=== PATIENT | male | born 1960 | race Caucasian/White ===

== ENCOUNTER 2020-09-15 19:44 | Emergency (ER) | payer OTHER ==
[2020-09-15 20:00] VITALS: BMI 32.6
[2020-09-15 22:34] LABS: BASO % 0.9 % (0-2.0); EOS % 2.7 % (0-4.5); HEMATOCRIT 45.2 % (35.4-49); HEMOGLOBIN 15.1 GM/dL (11.7-16.9); LYMPH % 14.2 % (8-40); MCH 29.1 pg (25.7-33.7); MCHC 33.4 g/dl (32.0-35.9); MEAN CELL VOLUME 87.2 fl (80-96); MONO % 4.8 % (3.8-10.2); NEUT % 77.4 % (42.8-82.8); PLATELET COUNT 317 K/MM3 (134-434); RBC 5.19 M/mm3 (4.00-5.60); RDW 15.5 % (11.9-15.9); WHITE BLOOD COUNT 8.6 K/mm3 (4.0-10.0)
[2020-09-15] MEDS ORDERED: diazePAM CARPU-JECT 10 MG/2 ML DISP.SYRIN IVPUSH ONE (22:36)
[2020-09-15] MEDS ORDERED: SODIUM CHLORIDE 0.9% 500 ML INFUS.BAG IV ONE (22:37)
[2020-09-15] MEDS ORDERED: MIDAZOLAM HCL 2 MG/2 ML SINGLE DOSE VIAL IVPUSH ONE (22:37)
[2020-09-15] MEDS ORDERED: MIDAZOLAM HCL 2 MG/2 ML SINGLE DOSE VIAL ONE (22:40)
[2020-09-15] MEDS ORDERED: LORazepam 2 MG/ML SDV VIAL ONE (22:43)
[2020-09-15] MEDS ORDERED: diazePAM 5 MG TABLET PO ONE (22:43)
[2020-09-15] MEDS ORDERED: diazePAM 5 MG TABLET ONE (22:44)
[2020-09-15 22:45] LABS: INR 1.05 (0.83-1.09); PROTHROMBIN TIME (PATIENT) 12.7 SEC (9.7-13.0)
[2020-09-15 22:48] LABS: ACTIVATED PTT 30.5 SECONDS (25.2-36.5)
[2020-09-15 22:54] LABS: CHLORIDE 104 mmol/L (98-107); POTASSIUM 3.9 mmol/L (3.5-5.1); SODIUM 139 mmol/L (136-145)
[2020-09-15 22:57] LABS: ALBUMIN 4.3 g/dl (3.4-5.0); ANION GAP 9 MMOL/L (8-16); BLOOD UREA NITROGEN 9.6 mg/dL (7-18); CO2 26 mmol/L (21-32); GLUCOSE,RANDOM 106 mg/dL (74-106)
[2020-09-15 22:59] LABS: SGPT/ALT 30 U/L (13-61)
[2020-09-15 23:00] LABS: CREATININE 1.1 mg/dL (0.55-1.3); SGOT/AST 18 U/L (15-37)
[2020-09-15 23:01] LABS: TOT PROT 7.8 g/dl (6.4-8.2)
[2020-09-15 23:03] LABS: ALK PHOS 116 U/L (45-117)
[2020-09-15 23:22] LABS: ERYTHROCYTE SEDIMENTATION RATE 7 mm/hr (0-20)
[2020-09-16] MEDS ORDERED: DEXAMETHASONE SOD PHOSPHATE 10 MG/1 ML VIAL IVPUSH ONE (01:06)
[2020-09-16] MEDS ORDERED: DEXAMETHASONE SOD PHOSPHATE 10 MG/1 ML VIAL ONE (01:07)
[2020-09-16 01:39] VITALS: BP 166/92; PULSE 98
[2020-09-16 01:40] VITALS: TEMP 98.1
== END 2020-09-16 02:17 | disposition short-term general hospital (02) ==
LOC: JER 19:44
PROC: 3E033NZ Introduction of Analgesics, Hypnotics, Sedatives into Peripheral Vein, Percutaneous Approach (ICD-10-PCS; principal; 2020-09-15)
PROC: 3E033GC Introduction of Other Therapeutic Substance into Peripheral Vein, Percutaneous Approach (ICD-10-PCS; 2020-09-15)
DX: G95.20 Unspecified cord compression (principal)
CPT/HCPCS: 36415; 72148-TC; 80053; 85025; 85610; 85651; 85730; 86140; 99285-25; C9803; J1100; U0003

== ENCOUNTER 2021-03-23 15:13 | Emergency (ER) | payer OTHER ==
[2021-03-23 15:20] VITALS: BMI 19.0
[2021-03-23 17:25] VITALS: TEMP 98.1
[2021-03-23] MEDS ORDERED: CEFAZOLIN 1 GM/D5W 1 GM/50 ML BAG IVPB ONE (17:30)
[2021-03-23 17:34] LABS: BASO % 0.3 % (0-2.0); EOS % 5.4 % (0-4.5); HEMATOCRIT 40.3 % (35.4-49); HEMOGLOBIN 13.5 GM/dL (11.7-16.9); LYMPH % 16.4 % (8-40); MCH 27.9 pg (25.7-33.7); MCHC 33.6 g/dl (32.0-35.9); MEAN CELL VOLUME 83.2 fl (80-96); MEAN PLT VOLUME 8.3 fl (7.5-11.1); MONO % 5.6 % (3.8-10.2); NEUT % 72.3 % (42.8-82.8); PLATELET COUNT 290 K/MM3 (134-434); RBC 4.85 M/mm3 (4.00-5.60); RDW 16.2 % (11.9-15.9); WHITE BLOOD COUNT 6.5 K/mm3 (4.0-10.0)
[2021-03-23 17:42] LABS: INR 0.99 (0.83-1.09); PROTHROMBIN TIME (PATIENT) 12.2 SEC (9.7-13.0)
[2021-03-23 17:45] LABS: ACTIVATED PTT 30.3 SECONDS (25.2-36.5)
[2021-03-23] MEDS ORDERED: ACETAMINOPHEN 1000 MG/100 ML VIAL (NON FORMULARY) IVPB ONE (17:46)
[2021-03-23 17:54] LABS: CHLORIDE 107 mmol/L (98-107); SODIUM 141 mmol/L (136-145)
[2021-03-23 17:56] LABS: ANION GAP 7 MMOL/L (8-16); CALCIUM 8.5 mg/dL (8.5-10.1); CO2 27 mmol/L (21-32); GLUCOSE,RANDOM 121 mg/dL (74-106)
[2021-03-23 17:57] LABS: ALBUMIN 3.8 g/dl (3.4-5.0); BLOOD UREA NITROGEN 8.5 mg/dL (7-18)
[2021-03-23 17:59] LABS: CREATININE 1.2 mg/dL (0.55-1.3); SGOT/AST 23 U/L (15-37); SGPT/ALT 29 U/L (13-61)
[2021-03-23 18:01] LABS: BILIRUBIN,TOTAL 0.7 mg/dL (0.2-1)
[2021-03-23 18:02] LABS: ALK PHOS 125 U/L (45-117)
[2021-03-23] MEDS ORDERED: CEFAZOLIN 1 GM/D5W 1 GM/50 ML BAG ONE (19:32)
[2021-03-23] MEDS ORDERED: ACETAMINOPHEN INJECTION 100 ML IVPB ONE (19:32)
[2021-03-23 19:42] VITALS: BP 187/117; PULSE 96
== END 2021-03-23 20:58 | disposition home or self-care (01) ==
LOC: JER 15:13
PROC: 3E03329 Introduction of Other Anti-infective into Peripheral Vein, Percutaneous Approach (ICD-10-PCS; principal; 2021-03-23)
PROC: 3E033NZ Introduction of Analgesics, Hypnotics, Sedatives into Peripheral Vein, Percutaneous Approach (ICD-10-PCS; 2021-03-23)
DX: L03.211 Cellulitis of face (principal); L02.01 Cutaneous abscess of face; Z86.79 Personal history of other diseases of the circulatory system
CPT/HCPCS: 36415; 70481-TC; 71045-TC-FY; 80053; 84484; 85025; 85610; 85730; 87040; 93005; 93010; 99285-25; J0131; Q9967

== ENCOUNTER 2024-01-20 04:37 | Day surgery (SDC) | payer OTHER ==
[2024-01-15 11:45] VITALS: BMI 35.4
[2024-01-20] MEDS ORDERED: TRIAMCINOLONE ACET 40MG/1ML VIAL ONE (07:22)
[2024-01-20] MEDS ORDERED: BUPIVACAINE HCL/PF 0.5% (5MG/ML) 10 ML VIAL ONE (07:22)
[2024-01-20] MEDS ORDERED: DEXAMETHASONE SOD PHOSPHATE 10 MG/1 ML VIAL ONE (07:23)
[2024-01-20] MEDS ORDERED: LIDOCAINE HCL/PF 1% SDV 5ML VIAL ONE ×2 (07:23→11:42)
[2024-01-20] MEDS ORDERED: BUPIVACAINE HCL/PF 0.75% 10 ML VIAL ONE (07:23)
[2024-01-20 09:37] VITALS: BP 137/68; PULSE 100; RESP 18; TEMP 97.8
[2024-01-20] MEDS: DEXAMETHASONE SOD PHOSPHATE 10 MG/1 ML VIAL IVPUSH ONE ×2 (11:12)
[2024-01-20] MEDS: IOHEXOL 180 MG/1 ML ML IJ ONE ×2 (11:12)
[2024-01-20] MEDS: LIDOCAINE HCL 1% PRESERVATIVE FREE - 30ML VIAL IJ ONE ×2 (11:12)
[2024-01-20] MEDS ORDERED: ACETAMINOPHEN 500 MG TABLET (FP) PO PRN (13:16)
== END 2024-01-20 12:14 | disposition home or self-care (01) ==
LOC: JASU-SURG 04:37
PROVIDERS: ATTEND Pain Medicine Pain Medicine
PROC: 3E0T3BZ Introduction of Anesthetic Agent into Peripheral Nerves and Plexi, Percutaneous Approach (ICD-10-PCS; 2024-01-20)
PROC: 3E0T33Z Introduction of Anti-inflammatory into Peripheral Nerves and Plexi, Percutaneous Approach (ICD-10-PCS; principal; 2024-01-20 11:30)
DX: M54.16 Radiculopathy, lumbar region (principal)
CPT/HCPCS: 76000-TC-FY; 82962; J1100

== ENCOUNTER 2024-11-26 04:12 | Day surgery (SDC) | payer OTHER ==
[2024-11-24 12:40] VITALS: BMI 36.5
[2024-11-26] MEDS ORDERED: ACETAMINOPHEN 500 MG TABLET (FP) PO PRN (09:03)
[2024-11-26] MEDS ORDERED: DEXMEDETOMIDINE HCL 200 MCG/2 ML IVPB ONE (10:51)
[2024-11-26] MEDS ORDERED: CEFAZOLIN 2 GM/D5W 2 GM/50 ML ML IVPB ONE (11:36)
[2024-11-26] MEDS ORDERED: ceFAZolin SODIUM 1 GM VIAL ONE (11:37)
[2024-11-26] MEDS: ceFAZolin SODIUM 1 GM VIAL IVPB ONE (11:42)
[2024-11-26] MEDS: LIDOCAINE HCL/PF 2% SDV 5ML VIAL INF ONE ×2 (12:18)
[2024-11-26] MEDS: LIDOCAINE 1% P/F 10 MG/ML VIAL INF ONE ×2 (12:18)
[2024-11-26] MEDS: LIDOCAINE HCL 1% PRESERVATIVE FREE - 30ML VIAL IJ ONE (12:18)
[2024-11-26 15:03] VITALS: RESP 18; TEMP 97.8
[2024-11-26 15:07] VITALS: BP 118/78; PULSE 70
== END 2024-11-26 14:20 | disposition home or self-care (01) ==
LOC: JASU-SURG 04:12
PROVIDERS: ATTEND Pain Medicine Pain Medicine
PROC: 00HV3MZ Insertion of Neurostimulator Lead into Spinal Cord, Percutaneous Approach (ICD-10-PCS; principal; 2024-11-26 10:30)
DX: G89.4 Chronic pain syndrome (principal); M96.1 Postlaminectomy syndrome, not elsewhere classified; M54.16 Radiculopathy, lumbar region
CPT/HCPCS: 63650; C1897; 76000-TC-FY

== ENCOUNTER 2024-12-24 05:29 | Day surgery (SDC) | payer OTHER ==
[2024-12-22 12:56] VITALS: BMI 36.5
[2024-12-24] MEDS ORDERED: ACETAMINOPHEN 500 MG TABLET (FP) PO PRN (12:34)
[2024-12-24] MEDS ORDERED: LIDOCAINE HCL/PF 1% SDV 5ML VIAL ONE (16:22)
[2024-12-24] MEDS ORDERED: LIDOCAINE HCL/PF 2% SDV 5ML VIAL ONE (16:22)
[2024-12-24] MEDS ORDERED: PROMETHAZINE HCL 25 MG/1 ML VIAL IVPB PRN (16:45)
[2024-12-24] MEDS ORDERED: oxyCODONE HCL 5 MG TABLET PO PRN (16:45)
[2024-12-24] MEDS: ceFAZolin SODIUM 1 GM VIAL IVPB ONE (19:31)
[2024-12-24] MEDS ORDERED: VANCOMYCIN 1,000 MG VIAL (RESTRICTED TO ID ONLY) ONE (19:51)
[2024-12-24] MEDS ORDERED: LIDOCAINE 1%/EPI 1:100000 (20 ML MULTI DOSE VIAL) ONE ×2 (19:52→21:08)
[2024-12-24] MEDS: LIDOCAINE HCL 1%, 10 MG/ML (50 mL VIAL) INF ONE (19:55)
[2024-12-24] MEDS: LIDOCAINE HCL/PF 2% SDV 5ML VIAL INF ONE (20:00)
[2024-12-24] MEDS: LIDOCAINE 1%/EPI 1:100000 (50 ML MULTI DOSE VIAL) INF ONE ×3 (20:22)
[2024-12-24] MEDS ORDERED: GENTAMICIN SO4 80 MG/2 ML VIAL ONE (21:12)
[2024-12-24] MEDS: LACTATED RINGERS SOLUTION 1,000 ML IV SCH (22:30)
[2024-12-24 22:56] VITALS: TEMP 97.3
[2024-12-24 23:51] VITALS: RESP 19
[2024-12-25 01:13] VITALS: BP 102/62; PULSE 65
== END 2024-12-25 01:14 | disposition home or self-care (01) ==
LOC: JASU-SURG 05:29 → JASUSAT 05:29 → J5S 11:35 → JASUSAT 12-25 01:14
PROVIDERS: ATTEND Pain Medicine Pain Medicine
PROC: 00HU3MZ Insertion of Neurostimulator Lead into Spinal Canal, Percutaneous Approach (ICD-10-PCS; 2024-12-24)
PROC: 0JH73BZ Insertion of Single Array Stimulator Generator into Back Subcutaneous Tissue and Fascia, Percutaneous Approach (ICD-10-PCS; principal; 2024-12-24 16:00)
DX: G89.4 Chronic pain syndrome (principal); M96.1 Postlaminectomy syndrome, not elsewhere classified; M54.16 Radiculopathy, lumbar region; M54.50 Low back pain, unspecified
CPT/HCPCS: 63650; 63685; C1778; L8679; 76000-TC-FY; 94760; C1767; J0131